=== PATIENT | female | born 1960 | race Hispanic/Latino ===

== ENCOUNTER → 2017-07-31 | Outpatient (CLI) | payer OTHER | END | disposition home or self-care (01) | LOC: RAH 10:00 | PROVIDERS: ATTEND Family Medicine | DX: K76.0 Fatty (change of) liver, not elsewhere classified (principal); R16.0 Hepatomegaly, not elsewhere classified; N13.39 Other hydronephrosis; R79.89 Other specified abnormal findings of blood chemistry | CPT/HCPCS: 76705 ==

== ENCOUNTER → 2018-09-21 | Outpatient (CLI) | payer OTHER | END | disposition home or self-care (01) | LOC: RAH 09:43 | PROVIDERS: ATTEND Family Medicine | DX: Z12.31 Encounter for screening mammogram for malignant neoplasm of breast (principal) | CPT/HCPCS: 77067 ==

== ENCOUNTER → 2021-08-03 | Outpatient (CLI) | payer BC | END | disposition home or self-care (01) | LOC: SHCH 09:12 | PROVIDERS: ATTEND Internal Medicine Cardiovascular Disease | DX: I07.1 Rheumatic tricuspid insufficiency (principal); I10 Essential (primary) hypertension; R55 Syncope and collapse | CPT/HCPCS: 93306 ==

== ENCOUNTER 2021-10-24 10:00 | Inpatient (IN) | payer BC ==
[~2021-10-24] VITALS: Ht 167.6 cm; Wt 126.1 kg
[2021-10-24 10:03] LABS: BASOPHILS % (AUTO) 0.6 % (0.0-5.0); EOSINOPHILS % (AUTO) 2.8 % (0.0-8.0); HEMATOCRIT 38.5 % (36-48); LYMPHOCYTES % (AUTO) 32.7 % (21.0-51.0); MEAN CORPUSCULAR HEMOGLOBIN 27.5 pg (27.0-33.0); MEAN CORPUSCULAR HGB CONC 31.4 g/dL (32.0-36.0); MEAN CORPUSCULAR VOLUME 87.5 fL (79-99); MONOCYTES % (AUTO) 8.9 % (3.0-13.0); NEUTROPHILS % (AUTO) 54.8 % (40.0-77.0); PLATELET COUNT (AUTO) 166 K/uL (130-400); WHITE BLOOD COUNT (AUTO) 4.6 K/uL (4.8-10.8)
[2021-10-24 10:15] LABS: CREATININE 0.7 mg/dL (0.5-1.5); POTASSIUM 3.8 mmol/L (3.5-5.1)
[2021-10-24 10:17] LABS: INR 1.06 (0.85-1.15); PROTHROMBIN TIME 11.5 SEC (9.6-11.6)
[2021-10-24 11:14] LABS: APPEARANCE,URINE Cloudy (CLEAR); BILIRUBIN,URINE Negative (NEGATIVE); COLOR,URINE Yellow (YELLOW); GLUCOSE, URINE (UA) Negative (NEGATIVE); KETONES,URINE Negative (NEGATIVE); LEUKOCYTE ESTERASE ,URINE Negative (NEGATIVE); NITRATE,URINE Negative (NEGATIVE); OCCULT BLOOD,URINE Negative (NEGATIVE); PH,URINE 7.5 (5.0-8.0); PROTEIN,URINE Negative (NEGATIVE)
[2021-10-24 11:25] LABS: BACTERIA,URINE Many /HPF (None Seen); RBC,URINE 0-1 /HPF (0-1); SQUAMOUS EPITHELIAL CELL,UR Rare /HPF (0-2)
[2021-10-24 15:19] VITALS: BP 194/78
[2021-10-24] MEDS ORDERED: METO-408 PO (15:29)
[2021-10-24] MEDS ORDERED: PRAV40TA3 PO (15:29)
[2021-10-24] MEDS ORDERED: CETI10TA57 PO (15:29)
[2021-10-24] MEDS ORDERED: VITAMIN D3 PO (15:29)
[2021-10-24] MEDS ORDERED: OMEP40CA21 PO (15:29)
[2021-10-24] MEDS ORDERED: AMLO-258 PO (15:29)
[2021-10-24] MEDS ORDERED: HYDR25TA PO (15:29)
[2021-10-24] MEDS ORDERED: NITR0.4T50 SL (15:29)
[2021-10-24] MEDS ORDERED: HYDR-4060 PO (15:29)
[2021-10-24] MEDS ORDERED: MELO-106 PO (15:29)
[2021-10-25] VITALS (23 sets, daily range): BP systolic 104–143; BP diastolic 45–79
[2021-10-25] MEDS: CEFAZOLIN SODIUM 1 GM VIAL IVP SCH ×2 (08:30→10:09)
[2021-10-25] MEDS ORDERED: LACTATED RINGERS 1000ML 1,000 ML IV ONE (08:31)
[2021-10-25] MEDS ORDERED: TRANEXAMIC ACID 1000MG/10ML ONE (08:34)
[2021-10-25] MEDS ORDERED: METOCLOPRAMIDE 10 MG/2 ML VIAL ONE (09:08)
[2021-10-25] MEDS ORDERED: KETOROLAC 15MG/ML VIAL (15MG/ML) ONE (09:09)
[2021-10-25] MEDS ORDERED: CELECOXIB 200 MG CAP ONE (09:09)
[2021-10-25] MEDS ORDERED: ACETAMINOPHEN 500 MG TABLET ONE (09:09)
[2021-10-25] MEDS ORDERED: GLYCOPYRROLATE 1 MG/5 ML SYRINGE ONE (09:45)
[2021-10-25] MEDS ORDERED: PROPOFOL 10 MG/ML 20ML VIAL IV ONE (09:45)
[2021-10-25] MEDS ORDERED: MIDAZOLAM HCL 1 MG/ML 2ML VIAL ONE (09:45)
[2021-10-25] MEDS ORDERED: FENTANYL CITRATE PF 50 MCG/1 ML 5ML AMP IV ONE (09:46)
[2021-10-25] MEDS ORDERED: ROCURONIUM 10MG/1ML SYR 10 MG/ML ML ONE ×2 (09:46→10:42)
[2021-10-25] MEDS ORDERED: ROPIVACAINE 0.5% 5MG/ML 30ML IJ ONE (09:58)
[2021-10-25] MEDS ORDERED: CEFAZOLIN SODIUM 1 GM VIAL ONE ×2 (10:02→20:24)
[2021-10-25] MEDS: CEFAZOLIN SODIUM 1 GM VIAL ONE ×2 (10:46→10:47)
[2021-10-25] MEDS ORDERED: ONDANSETRON 4MG INJ ONE (11:51)
[2021-10-25] MEDS: 0.9%NACL 1000ML 1,000 ML IV SCH (12:00)
[2021-10-25] MEDS ORDERED: CALCIUM CARB 500MG PO PRN (12:00)
[2021-10-25] MEDS ORDERED: ONDANSETRON 4MG INJ IVP PRN (12:00)
[2021-10-25] MEDS ORDERED: LIDOCAINE HCL-MPF 1% 2ML VIAL IV PRN (12:00)
[2021-10-25] MEDS: ACETAMINOPHEN 500 MG TABLET PO SCH ×2 (12:00→20:28)
[2021-10-25] MEDS ORDERED: TRAMADOL HCL 50 MG TABLET PO PRN (12:00)
[2021-10-25] MEDS ORDERED: DiphenhydrAMINE HCL 50 MG/ML VIAL IVP PRN (12:00)
[2021-10-25] MEDS ORDERED: TEMAZEPAM 15 MG CAPSULE PO PRN (12:00)
[2021-10-25] MEDS ORDERED: POTASSIUM CHLORIDE 10% ELIXIR 20 MEQ/15 ML UDCUP PO PRN (12:00)
[2021-10-25] MEDS ORDERED: POTASSIUM CHLORIDE 20MEQ/100ML 100 ML IV PRN (12:00)
[2021-10-25] MEDS: CEFAZOLIN SODIUM 3 GM in DEXTROSE 5%-WATER 100 ML IVP SCH ×2 (12:00→20:37)
[2021-10-25] MEDS ORDERED: FERROUS FUMARATE 324 MG TABLET PO PRN (12:00)
[2021-10-25] MEDS ORDERED: NEOSTIGMINE 5MG/5ML SYR IV ONE (12:04)
[2021-10-25] MEDS ORDERED: HYDROMORPHONE 1 MG INJ ONE (13:09)
[2021-10-25] MEDS: OXYCODONE HCL 5 MG TAB PO PRN ×2 (17:14→22:52)
[2021-10-25] MEDS ORDERED: NITROGLYCERIN 0.4 MG SL TAB SL PRN (18:00)
[2021-10-25] MEDS: PREGABALIN 25 MG CAP PO SCH (20:27)
[2021-10-25] MEDS: FAMOTIDINE 20MG TAB PO SCH (20:27)
[2021-10-25] MEDS: CELECOXIB 200 MG CAP PO SCH (20:27)
[2021-10-25] MEDS: KETOROLAC 15MG/ML VIAL (15MG/ML) IV PRN (20:33)
[2021-10-26 00:19] VITALS: BP 121/53
[2021-10-26] MEDS ORDERED: CEFAZOLIN SODIUM 1 GM VIAL ONE (03:26)
[2021-10-26] MEDS: OXYCODONE HCL 5 MG TAB PO PRN ×3 (03:39→12:27)
[2021-10-26] MEDS: CEFAZOLIN SODIUM 3 GM in DEXTROSE 5%-WATER 100 ML IVP SCH (03:40)
[2021-10-26] MEDS: ACETAMINOPHEN 500 MG TABLET PO SCH ×3 (03:41→20:02)
[2021-10-26] MEDS: 0.9%NACL 1000ML 1,000 ML IV SCH ×2 (03:50→08:00)
[2021-10-26 04:00] VITALS: BP 107/53
[2021-10-26 04:17] LABS: HEMATOCRIT 31.9 % (36-48); MEAN CORPUSCULAR HEMOGLOBIN 28.8 pg (27.0-33.0); MEAN CORPUSCULAR HGB CONC 32.3 g/dL (32.0-36.0); MEAN CORPUSCULAR VOLUME 89.1 fL (79-99); RED BLOOD CELL COUNT(AUTO) 3.58 MIL/uL (4.00-5.50); RED CELL DISTRIBUTION WIDTH 14.4 % (11.0-15.5); WHITE BLOOD COUNT (AUTO) 7.4 K/uL (4.8-10.8)
[2021-10-26 04:27] LABS: CREATININE 0.8 mg/dL (0.5-1.5); POTASSIUM 3.6 mmol/L (3.5-5.1)
[2021-10-26 08:00] VITALS: BP 108/48
[2021-10-26] MEDS ORDERED: NON-FORMULARY MEDICATION 1 EACH (Cetirizine HCl 10 MG) PO SCH (09:00)
[2021-10-26] MEDS ORDERED: NON-FORMULARY MEDICATION 1 EACH (Pravastatin Sodium 40 MG) PO SCH (09:00)
[2021-10-26] MEDS ORDERED: NON-FORMULARY MEDICATION 1 EACH (Metoprolol Succinate 25 MG) PO SCH (09:00)
[2021-10-26] MEDS ORDERED: VITAMIN D3 PO SCH (09:00)
[2021-10-26] MEDS ORDERED: NON-FORMULARY MEDICATION 1 EACH (Amlodipine Besylate 10 MG) PO SCH (09:00)
[2021-10-26] MEDS ORDERED: HYDROCHLOROTHIAZIDE 25 MG TABLET PO SCH (09:00)
[2021-10-26] MEDS: VITAMIN D3 PO SCH (09:00)
[2021-10-26] MEDS: PRAVASTATIN 40MG PO SCH (09:00)
[2021-10-26] MEDS: METOPROLOL SUCCINATE 50 MG TAB.SR.24H PO SCH (09:00)
[2021-10-26] MEDS ORDERED: NON-FORMULARY MEDICATION 1 EACH (Omeprazole 40 MG) PO SCH (09:00)
[2021-10-26] MEDS: AMLODIPINE 5 MG TAB PO SCH (09:00)
[2021-10-26] MEDS: FAMOTIDINE 20MG TAB PO SCH ×2 (09:15→20:00)
[2021-10-26] MEDS: PREGABALIN 25 MG CAP PO SCH ×2 (09:15→20:00)
[2021-10-26] MEDS: PANTOPRAZOLE 40 MG TAB DR PO SCH (09:15)
[2021-10-26] MEDS: APIXABAN 2.5 MG TABLET PO SCH ×2 (09:15→20:00)
[2021-10-26] MEDS: POLYETHYLENE GLYCOL 3350 17 GM POWD.PACK PO SCH (09:15)
[2021-10-26] MEDS: CETIRIZINE HCL 5 MG TABLET PO SCH (09:15)
[2021-10-26] MEDS: CELECOXIB 200 MG CAP PO SCH ×2 (09:16→20:00)
[2021-10-26] MEDS: KCL 20 MEQ ERTAB PO PRN ×2 (11:51→14:31)
[2021-10-26 12:00] VITALS: BP 127/57
[2021-10-26] MEDS: KETOROLAC 15MG/ML VIAL (15MG/ML) IV PRN ×2 (15:10→22:31)
[2021-10-26 16:00] VITALS: BP 122/51
[2021-10-26 20:00] VITALS: BP 122/55
[2021-10-27 00:09] VITALS: BP 106/47
[2021-10-27] MEDS: ACETAMINOPHEN 500 MG TABLET PO SCH ×2 (03:33→11:42)
[2021-10-27] MEDS: OXYCODONE HCL 5 MG TAB PO PRN ×2 (07:59→11:42)
[2021-10-27 08:00] VITALS: BP 115/60
[2021-10-27] MEDS: PRAVASTATIN 40MG PO SCH (09:00)
[2021-10-27] MEDS: VITAMIN D3 PO SCH (09:00)
[2021-10-27] MEDS: KETOROLAC 15MG/ML VIAL (15MG/ML) IV PRN (09:22)
[2021-10-27] MEDS: PREGABALIN 25 MG CAP PO SCH (09:27)
[2021-10-27] MEDS: CELECOXIB 200 MG CAP PO SCH (09:28)
[2021-10-27] MEDS: CETIRIZINE HCL 5 MG TABLET PO SCH (09:28)
[2021-10-27] MEDS: APIXABAN 2.5 MG TABLET PO SCH (09:28)
[2021-10-27] MEDS: FAMOTIDINE 20MG TAB PO SCH (09:29)
[2021-10-27] MEDS: PANTOPRAZOLE 40 MG TAB DR PO SCH (09:29)
[2021-10-27] MEDS: AMLODIPINE 5 MG TAB PO SCH (09:29)
[2021-10-27] MEDS: METOPROLOL SUCCINATE 50 MG TAB.SR.24H PO SCH (09:29)
[2021-10-27] MEDS: POLYETHYLENE GLYCOL 3350 17 GM POWD.PACK PO SCH (09:32)
[2021-10-27] MEDS ORDERED: HYDR-4060 PO (11:45)
[2021-10-27] MEDS ORDERED: APIX2.5T PO (11:45)
[2021-10-27] MEDS ORDERED: NITR100C4 PO (11:53)
[2021-10-27 11:57] VITALS: BP 116/54
[2021-10-28] MEDS ORDERED: BISACODYL 10 MG SUPP.RECT RC PRN (12:00)
== END 2021-10-27 15:30 | disposition home health service (06) | DRG 470 ==
LOC: EDSTATUS 10:00 → OBSVTOIN 10-25 07:40 → DAHIP 10-25 07:40 → INTOOBSV 10-25 07:40 → 4AH 10-25 14:15
PROVIDERS: ADMIT Orthopaedic Surgery; ATTEND Orthopaedic Surgery
PROC: 0SRD0J9 Replacement of Left Knee Joint with Synthetic Substitute, Cemented, Open Approach (ICD-10-PCS; principal; 2021-10-25 09:37)
DX: M17.12 Unilateral primary osteoarthritis, left knee (principal); N39.0 Urinary tract infection, site not specified; Z68.41 Body mass index [BMI] 40.0-44.9, adult; E66.9 Obesity, unspecified; Z20.822 Contact with and (suspected) exposure to COVID-19; I10 Essential (primary) hypertension; K21.9 Gastro-esophageal reflux disease without esophagitis; Z82.5 Family history of asthma and other chronic lower respiratory diseases; Z82.49 Family history of ischemic heart disease and other diseases of the circulatory system
CPT/HCPCS: 36415; 80048; 81001; 84132; 85025; 85027; 85610; 87077; 87088; 87186; 87635; 87641; 93005; 97039; G0378; J0690; J1170; J1885; J2250; J2405; J2704; J2710; J2765; J2795; J3010; J3490; J7030; J7060; J7120

== ENCOUNTER → 2022-10-15 | Outpatient (CLI) | payer BC ==
[~2022-10-15] MED LIST: AMLO-258 PO; APIX2.5T PO; CETI10TA57 PO; HYDR-4060 PO; HYDR25TA PO; MELO-106 PO; METO-408 PO; NITR0.4T50 SL; NITR100C4 PO; OMEP40CA21 PO; PRAV40TA3 PO; VITAMIN D3 PO
[2022-10-15 12:22] LABS: CREATININE 0.8 mg/dL (0.5-1.5); POTASSIUM 3.8 mmol/L (3.5-5.1); TOTAL PROTEIN, SERUM 6.5 g/dL (6.0-8.3)
== END | disposition home or self-care (01) ==
LOC: LAB 08:12
PROVIDERS: ATTEND Internal Medicine Cardiovascular Disease
DX: E78.2 Mixed hyperlipidemia (principal)
CPT/HCPCS: 36415; 80053; 80061

== ENCOUNTER → 2022-12-19 | Outpatient (CLI) | payer BC ==
[2022-12-19 12:44] LABS: CREATININE 0.7 mg/dL (0.5-1.5); POTASSIUM 3.8 mmol/L (3.5-5.1)
== END | disposition home or self-care (01) ==
LOC: LAB 08:32
PROVIDERS: ATTEND Internal Medicine Cardiovascular Disease
DX: I50.22 Chronic systolic (congestive) heart failure (principal)
CPT/HCPCS: 36415; 80048; 83880

== ENCOUNTER → 2023-10-28 | Outpatient (CLI) | payer BC, MEDICARE ==
[2023-10-28 12:23] LABS: ALBUMIN 3.1 g/dL (3.5-5.0); BILIRUBIN,TOTAL 0.5 mg/dL (0.2-1.0); CREATININE 0.6 mg/dL (0.5-1.0); POTASSIUM 3.8 mmol/L (3.5-5.1); TOTAL PROTEIN, SERUM 6.5 g/dL (6.0-8.3)
== END | disposition home or self-care (01) ==
LOC: LAB 08:07
PROVIDERS: ATTEND Internal Medicine Cardiovascular Disease
DX: E78.5 Hyperlipidemia, unspecified (principal)
CPT/HCPCS: 36415; 80053; 80061

== ENCOUNTER → 2024-05-24 | Outpatient (CLI) | payer MEDICARE ==
[2024-05-24 12:32] LABS: CREATININE 0.7 mg/dL (0.5-1.0); POTASSIUM 4.5 mmol/L (3.5-5.1)
== END | disposition home or self-care (01) ==
LOC: LAB 08:20
PROVIDERS: ATTEND Internal Medicine Cardiovascular Disease
DX: E87.6 Hypokalemia (principal)
CPT/HCPCS: 36415; 80048